=== PATIENT | female | born 1945 | race Caucasian/White ===

== ENCOUNTER 2017-11-09 10:30 | Emergency (ER) | payer MEDICAID ==
[2017-11-09] MEDS ORDERED: ASPIRIN PO ONE (11:28)
[2017-11-09 12:08] LABS: Basophils % (Auto) 0.4 % (0.0-1.8); Eosinophils # (Auto) 0.1 K/mm3 (0.0-0.4); Eosinophils % (Auto) 0.9 % (0.0-4.3); Hemoglobin 13.4 gm/dl (10.1-14.3); Lymphocytes % (Auto) 20.8 % (13.4-35.0); Mean Corpuscular HGB Conc 33 % (30-34); Mean Corpuscular Hemoglobin 31 pg (28-32); Mean Corpuscular Volume 94 fl (79-97); Monocytes # (Auto) 0.6 K/mm3 (0.0-0.8); Monocytes % (Auto) 5.9 % (0.0-7.3); Platelet Count 303 K/mm3 (140-440); Red Blood Count 4.37 M/mm3 (3.65-5.03); Red Cell Distribution Width 13.4 % (13.2-15.2)
[2017-11-09 12:21] LABS: BUN/Creatinine Ratio 22; Blood Urea Nitrogen 11 mg/dL (7-17); Calcium 9.4 mg/dL (8.4-10.2); Hemolysis Index 64
--- NOTE | 2017-11-09 15:33 | Emergency Department Report ---
Chief Complaint: Dizziness Stated Complaint: HEADACHE - HPI History of Present Illness: 72 yo female with headache, dizziness and vomiting. Will need language services. - Exam Vital Signs: Vital Signs 11/09/17 11:24 Temperature 98.8 F Pulse Rate 68 Respiratory 16 Rate Blood Pressure 168/82 O2 Sat by Pulse 97 Oximetry MSE screening note: Focused history and physical exam performed. Due to findings the following was ordered: ED Medical Decision Making - Lab Data Result diagrams: 11/09/17 11:41 11/09/17 11:41 ED Disposition for MSE Condition: Stable Referrals: PRIMARY CARE, [Primary Care Provider] - 3-5 Days
--- NOTE | 2017-11-09 16:09 | Cat Scan Report ---
FINAL REPORT EXAM: CT HEAD/BRAIN WO CON HISTORY: headache dizziness TECHNIQUE: CT examination of the head without IV contrast PRIORS: None. FINDINGS: Slight mucosal thickening ethmoid and maxillary sinuses. No acute air-fluid level visualized in the included air-filled sinuses. Bone windows demonstrate no acute fracture. There is ventricular and sulcal prominence compatible with global cerebrocortical atrophy. Low attenuation regions in the cerebral white matter, while nonspecific, are present and usually attributed to chronic ischemic gliosis. It can occur secondary to the normal aging process, hypertension, or arterial sclerotic vascular disease. The differential includes demyelination in the appropriate clinical setting. The brain contains no hemorrhage or acute infarct. There is no extra-axial intracranial bleed or brain bleed. There is no midline shift. There is a nonspecific hyperdense heterogeneous lesion in the brainstem containing scattered calcifications. Margins are slightly lobulated. Approximate lesion size is 15 x 21 mm. This is suspicious for neoplasm. Differential includes inflammation, infection, or vascular malformation. The lesion is positioned in the superior posterior aspect of the upper medulla extending into the posterior inferior pontine region. The proximal aspect is present along the floor of the distal 4th ventricle. IMPRESSION: Posterior brainstem lesion along the inferior floor of the 4th ventricle is suspicious for calcified neoplasm. The differential includes inflammation, infection, or vascular malformation. Recommend followup brain MRI, with IV contrast if possible, to further characterize
--- NOTE | 2017-11-09 18:36 | XRay Report ---
FINAL REPORT EXAM: XR CHEST ROUTINE 2V HISTORY: dizziness TECHNIQUE: Chest, PA and lateral PRIORS: None. FINDINGS: There is borderline cardiomegaly. Pulmonary vasculature is not congested. The lungs are clear. There are no pleural effusion seen. There is no evidence of pneumothorax. IMPRESSION: There is no acute abnormality identified.
[2017-11-09] MEDS ORDERED: MORPHINE IM ONE (22:10)
[2017-11-09] MEDS ORDERED: ZOFRAN IM ONE (22:10)
[2017-11-09] MEDS ORDERED: FIORICET PO ONE (22:10)
--- NOTE | 2017-11-09 22:16 | Emergency Department Report ---
HPI - General Chief Complaint: Dizziness Time Seen by Provider: 11/09/17 21:27 - HPI HPI: Room 7 The patient is a 72-year-old female presenting with a chief complaint headache. History was obtained via translation through the line which line. 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 The patient states since yesterday afternoon she had the same headache of her calvarium however has been worse than it has been in the past. Patient denies any recent trauma. Patient admits to nausea but denies vomiting. Patient does admit to some dizziness. The patient states she is followed by a neurologist for her tumor but cannot remember their name A she gets her pain score of 10/10. The patient states she has been here in the ED so long she is only requesting pain medication in the ED and then to be discharged. Patient does not wish to wait to be reevaluated after pain medication Location: Head Duration: Constant since yesterday Quality: Headache Severity: 07/18 Modifying factors: [see above] Context: [see above] Mode of transportation: [not driving] ED Past Medical Hx - Past Medical History Hx Hypertension: Yes Hx Diabetes: Yes Additional medical history: Benign inoperable brain tumor - Surgical History Past Surgical History?: No - Social History Smoking Status: Never Smoker Substance Use Type: None - Medications Home Medications: Home Medications Medication Instructions Recorded Confirmed Last Taken Type Atenolol [Tenormin] 25 mg PO DAILY 11/09/17 11/09/17 11/08/17 History Butalb/Acetamin/Caff 50-325-40 2 tab PO Q8HR PRN #20 tablet 11/09/17 Unknown Rx [Fioricet] Lisinopril 20 mg PO QDAY 11/09/17 11/09/17 11/08/17 History metFORMIN [Glucophage] 500 mg PO BID 11/09/17 11/09/17 11/08/17 History ED Review of Systems ROS: Stated complaint: HEADACHE Other details as noted in HPI Gastrointestinal: nausea. denies: vomiting Neurological: headache, other (dizziness) Physical Exam - Physical Exam Vital Signs: Vital Signs 11/09/17 11/09/17 11:24 21:36 Temperature 98.8 F 98.6 F Pulse Rate 68 75 Respiratory 16 18 Rate Blood Pressure 168/82 Blood Pressure 146/83 [Left] O2 Sat by Pulse 97 98 Oximetry Physical Exam: GENERAL: The patient is well-developed well-nourished []. [] HEENT: Normocephalic. Atraumatic. 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 Left eye extraocular muscles intact. Patient has moist mucous membranes. NECK: Supple. No meningitic signs are noted. Trachea midline CHEST/LUNGS: Clear to auscultation. There is no respiratory distress noted. HEART/CARDIOVASCULAR: Regular. There is no tachycardia. There is no gallop rub or murmur. ABDOMEN: Abdomen is soft, nontender. Patient has normal bowel sounds. There is no abdominal distention. SKIN: There is no rash. There is no edema. There is no diaphoresis. NEURO: The patient is awake, alert, and oriented. The patient is cooperative. The patient has no focal neurologic deficits. The patient has normal speech. Cranial nerves II through XII grossly intact (except for above-noted defect with right eye). No pronator drift MUSCULOSKELETAL: There is no evidence of acute injury. ED Course Vital Signs 11/09/17 11/09/17 11:24 21:36 Temperature 98.8 F 98.6 F Pulse Rate 68 75 Respiratory 16 18 Rate Blood Pressure 168/82 Blood Pressure 146/83 [Left] O2 Sat by Pulse 97 98 Oximetry ED Medical Decision Making - Lab Data Result diagrams: 11/09/17 11:41 11/09/17 11:41 Laboratory Tests 11/09/17 11/09/17 11/09/17 11:41 11:41 14:52 WBC 9.6 RBC 4.37 Hgb 13.4 Hct 41.0 MCV 94 MCH 31 MCHC 33 RDW 13.4 Plt Count 303 Lymph % (Auto) 20.8 [place] % (Auto) 5.9 Eos % (Auto) 0.9 Baso % (Auto) 0.4 Lymph # 2.0 [place] # 0.6 Eos # 0.1 Baso # 0.0 Seg Neutrophils % 72.0 H Seg Neutrophils # 6.9 Sodium 144 Potassium 4.3 Chloride 104.3 Carbon Dioxide 22 Anion Gap 22 BUN 11 Creatinine 0.5 L Estimated GFR > 60 BUN/Creatinine Ratio 22 Glucose 111 H Calcium 9.4 Troponin T < 0.010 < 0.010 11/09/17 17:52 WBC RBC Hgb Hct MCV MCH MCHC RDW Plt Count Lymph % (Auto) [place] % (Auto) Eos % (Auto) Baso % (Auto) Lymph # [place] # Eos # Baso # Seg Neutrophils % Seg Neutrophils # Sodium Potassium Chloride Carbon Dioxide Anion Gap BUN Creatinine Estimated GFR BUN/Creatinine Ratio Glucose Calcium Troponin T < 0.010 - Radiology Data Radiology results: report reviewed (CT head), image reviewed (CT head) FINAL REPORT EXAM: CT HEAD/BRAIN WO CON HISTORY: headache dizziness TECHNIQUE: CT examination of the head without IV contrast PRIORS: None. FINDINGS: Slight mucosal thickening ethmoid and maxillary sinuses. No acute air-fluid level visualized in the included air-filled sinuses. Bone windows demonstrate no acute fracture. There is ventricular and sulcal prominence compatible with global cerebrocortical atrophy. Low attenuation regions in the cerebral white matter, while nonspecific, are present and usually attributed to chronic ischemic gliosis. It can occur secondary to the normal aging process, hypertension, or arterial sclerotic vascular disease. The differential includes demyelination in the appropriate clinical setting. The brain contains no hemorrhage or acute infarct. There is no extra-axial intracranial bleed or brain bleed. There is no midline shift. There is a nonspecific hyperdense heterogeneous lesion in the brainstem containing scattered calcifications. Margins are slightly lobulated. Approximate lesion size is 15 x 21 mm. This is suspicious for neoplasm. Differential includes inflammation, infection, or vascular malformation. The lesion is positioned in the superior posterior aspect of the upper medulla extending into the posterior inferior pontine region. The proximal aspect is present along the floor of the distal 4th ventricle. IMPRESSION: Posterior brainstem lesion along the inferior floor of the 4th ventricle is suspicious for calcified neoplasm. The differential includes inflammation, infection, or vascular malformation. Recommend followup brain MRI, with IV contrast if possible, to further characterize Transcribed By: BAL Dictated By: JAVED PLUNKETT MD Electronically Authenticated By: JAVED PLUNKETT MD Signed Date/Time: 11/09/171205 DD/ 05 TD/TT: 11/09/171205 FINAL REPORT EXAM: XR CHEST ROUTINE 2V HISTORY: dizziness TECHNIQUE: Chest, PA and lateral PRIORS: None. FINDINGS: There is borderline cardiomegaly. Pulmonary vasculature is not congested. The lungs are clear. There are no pleural effusion seen. There is no evidence of pneumothorax. IMPRESSION: There is no acute abnormality identified. Transcribed By: SMOOTH Dictated By: NICHOLE ALMODOVAR MD Electronically Authenticated By: NICHOLE ALMODOVAR MD Signed Date/Time: 11/09/171432 DD/ 32 TD/TT: 11/09/171432 - Differential Diagnosis ICH, brain mass, vertigo, Critical care attestation.: If time is entered above; I have spent that time in minutes in the direct care of this critically ill patient, excluding procedure time. ED Disposition Clinical Impression: Brainstem lesion, Headache Disposition: TO HOME OR SELFCARE Is pt being admited?: No Does the pt Need Aspirin: No Condition: Stable Additional Instructions: Return to the emergency department immediately should you develop worsening symptoms, fever, inability to tolerate food or liquid or any other concerns. Prescriptions: Butalb/Acetamin/Caff 50-325-40 [Fioricet] 2 tab PO Q8HR PRN #20 tablet PRN Reason: Headache Referrals: PRIMARY CAREMD [Primary Care Provider] - JARED BAEZ MD [Staff Physician] - JONNY (Dr. Pearce is a neurologist. Please follow-up with him or your neurologist for further evaluation) Time of Disposition: 22:18
[2017-11-09 23:43] VITALS: BP 142/78
== END 2017-11-09 23:00 | disposition home or self-care (01) ==
LOC: ED 10:30
DX: G93.89 Other specified disorders of brain (principal); R51 Headache; E11.9 Type 2 diabetes mellitus without complications; I10 Essential (primary) hypertension
CPT/HCPCS: 36415; 70450; 71046; 80048; 84484; 85025; 93005; 93010; 96372; 99285; J2270; J2405